=== PATIENT | male | born 1985 | race Caucasian/White ===

== ENCOUNTER 2019-07-07 13:57 | Emergency (ER) | payer SELFPAY ==
[2019-07-07 14:06] VITALS: BP 132/88; PULSE 75; RESP 16; TEMP 36.6; O2SAT 98; BMI 25.1
--- NOTE | 2019-07-07 14:11 | XRR_ITS ---
PROCEDURE INFORMATION: Exam: XR Chest, 1 View Exam date and time: 07/07/2019 2:37 PM Age: 33 years old Clinical indication: Right-sided chest pain; Additional info: Inspirational cchest pain right TECHNIQUE: Imaging protocol: XR of the chest Views: 1 view. COMPARISON: No relevant prior studies available. FINDINGS: Lungs: Unremarkable. No consolidation. Pleural space: Unremarkable. No pleural effusion. No pneumothorax. Heart/Mediastinum: Unremarkable. No cardiomegaly. Bones/joints: Unremarkable. XR/XR chest 1V portable [id number] IMPRESSION: No acute findings.
--- NOTE | 2019-07-07 14:20 | W.ED.GENADLT ---
HPI - General Adult General: Chief complaint: General Medical Stated complaint: spider bite/chest hurts when he breathes Time Seen by Provider: 07/07/19 14:11 History of Present Illness: HPI narrative: Patient complains spider bite right hip that is draining some is painful and about a day after spider bite which was 2 days ago he started having some pain with cough and inspiration nonproductive cough no fever chills MD complaint: Spider bite Onset (ago): day(s) (2) Location: lower extremity Radiation: non-radiation Severity: mild Severity scale (1-10): 4 Quality: aching Pain Consistency: intermittent Associated symptoms: Reports cough; Deny chest pain, dyspnea, fevers/chills, headache(s), malaise, nausea, rash or vomiting Review of Systems Const: Denies: malaise Eyes: Denies: change in vision or blurry vision ENMT: Denies: throat pain or nasal congestion Card: Denies: chest pain or dyspnea on exertion Resp: Reports: non-productive cough and other (Pleuritic pain right side); Denies: dyspnea or productive cough GI: Denies: abdominal pain, nausea or vomiting : Denies: difficulty urinating Musc: Denies: extremity pain Skin/Breast: Reports: erythema, skin swelling and sores (Right hip x2 days were spider bit him said it was a brown recluse); Denies: rash Neuro: Denies: headache(s) Psych: Denies: anxiety or depression Sathish/Lymph: Denies: easy bruising PFSH ED PFSH: Social History Smoking and tobacco status: current every day smoker Physical Exam Const: COMMON NORMALS: no acute distress, average body habitus and patient oriented x3 HENMT: COMMON NORMALS: normocephalic HEAD & SCALP: normal to inspection and normocephalic FACE & SINUS: normal facial exam Eye: COMMON NORMALS: conjunctivae normal GENERAL EYE: appearance normal, both eyes and all related structures CONJUNCTIVA: Yes conjunctivae normal Neck/C-Spine: COMMON NORMALS: no JVD Chest: COMMONS NORMALS: normal inspection of the chest Resp: COMMON NORMALS: normal respiratory effort and clear to auscultation bilaterally AUSCULTATION: clear to auscultation bilaterally Cardio: COMMON NORMALS: no JVD, regular rate and regular rhythm RATE: regular rate RHYTHM: regular rhythm GI: COMMON NORMALS: Normal to inspection, nondistended, normoactive bowel sounds present Extremity: COMMON NORMALS: normal to inspection and full ROM Neuro: COMMON NORMALS: patient oriented x3 Skin: NARRATIVE SKIN EXAM: Nickel size area on the right outer hip that shows some drainage with surrounding erythema going out past half dollar size tender to the touch not abscessed Course Vital Signs: Vital signs: Vital Signs Temperature 97.9 F 07/07/19 14:06 Pulse Rate 75 07/07/19 14:06 Respiratory Rate 16 07/07/19 14:06 Blood Pressure 132/88 07/07/19 14:06 Pulse Oximetry 98 07/07/19 14:06 Discharge Plan Discharge Condition: Good Coding Level of Care Code ED Nitroglycerin 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
[2019-07-07] MEDS: ketorolac 60 mg/2 mL INJ IM (14:33)
[2019-07-07 14:34] VITALS: BP 137/82; PULSE 80; RESP 16; O2SAT 97
== END 2019-07-07 14:57 | disposition home or self-care (01) ==
PROVIDERS: Emergency Provider Nurse Practitioner Family
DX: T63.301A Toxic effect of unspecified spider venom, accidental (unintentional), initial encounter (principal); F17.210 Nicotine dependence, cigarettes, uncomplicated
CPT/HCPCS: 12345; 71045; 99281; 99283; J1885

== ENCOUNTER 2020-10-11 13:38 | Emergency (ER) | payer SELFPAY ==
[2020-10-11 13:40] VITALS: PULSE 75; RESP 19; TEMP 36.7; O2SAT 92; BMI 22.9
--- NOTE | 2020-10-11 14:20 | ED_ITS ---
HPI - Nausea/Vomiting/Diarrhea General: Chief complaint: Nausea/Vomiting/Diarrhea Stated complaint: n/v, Time Seen by Provider: 10/11/20 14:09 Source: patient Mode of arrival: ambulatory Limitations: no limitations History of Present Illness: HPI Narrative: Patient is a 34-year-old male who presents to ED today with a complaint of diffuse abdominal pain and nausea/vomiting. Patient states symptoms initially began on Monday. He states on Monday he had 12 episodes of non-bloody emesis. Symptoms have continued into today. He reports subjective fevers and chills. Patient denies sick contacts or poor food exposures. He is having normal bowel movements. He states urine has been incredibly dark. He does not complain of dysuria, frequency, urgency or flank pain. Patient states he has a history of hepatitis C. Significant other states he has been sleeping more than usual. MD elicited complaint: nausea, vomiting and abdominal pain Associated nausea: Yes Associated abdominal pain: Yes Location of pain: Diffuse Radiation: diffuse Pain consistency: constant Exacerbating factors: none Relieving factors: none Associated symtoms: Reports fatigue and nausea; Denies change in vision, chest pain, dysuria, headache(s), palpitations or syncope Review of Systems Const: Reports: fever(s), chills, change in appetite and fatigue; Denies: body aches Eyes: Denies: change in vision or blurry vision ENMT: Denies: throat pain, odynophagia, nasal discharge or nasal congestion Card: Denies: chest pain, palpitations, irregular heart rhythm, lightheadedness, syncope or dyspnea on exertion Resp: Denies: dyspnea, productive cough or pain on inspiration GI: Reports: abdominal pain, nausea and vomiting; Denies: hematemesis, coffee ground emesis, diarrhea, constipation, change in stool character, hematochezia or melena : Reports: other (dark urine); Denies: flank pain, difficulty urinating, dysuria, urinary frequency, urinary urgency, urinary hesitancy, genital pain or testicular pain Musc: Denies: neck pain, back pain or joint pain Skin/Breast: Denies: rash Neuro: Denies: headache(s), numbness in extremities, weakness in extremities or sensory changes PFSH ED PFSH: Social History Smoking and tobacco status: current every day smoker Physical Exam Const: COMMON NORMALS: no acute distress, average body habitus, patient oriented x3, no limitations, healthy appearing, alert and well nourished GENERAL APPEARANCE: cooperative ORIENTATION/CONSCIOUSNESS: Yes awake, Yes oriented to person, Yes oriented to place and Yes oriented to time HENMT: COMMON NORMALS: normocephalic and atraumatic HEAD & SCALP: normocephalic and atraumatic Resp: COMMON NORMALS: normal respiratory effort and clear to auscultation bilaterally AUSCULTATION: clear to auscultation bilaterally Cardio: COMMON NORMALS: regular rate and regular rhythm RATE: regular rate RHYTHM: regular rhythm GI: COMMON NORMALS: Normal to inspection, nondistended, normoactive bowel sounds present, Soft to palpation, No hepatosplenomegaly present and no masses PALPATION: Yes Soft to palpation, Yes Tenderness to palpation present (GI) (diffusely), Yes Guarding due to palpation present (GI) and Yes No hepatosple nomegaly present : COMMON NORMALS: Yes no CVA tenderness BLADDER/KIDNEY EXAM: Yes no CVA tenderness Back/Pelvis: COMMON NORMALS: no CVA tenderness Extremity: COMMON NORMALS: no pedal edema Neuro: COMMON NORMALS: patient oriented x3 SENSORIUM/ORIENTATION: Yes alert, Yes oriented to person, Yes oriented to place and Yes oriented to time Skin: COMMON NORMALS: no rashes or lesions noted GENERAL SKIN EXAM: no rashes or lesions noted TRAUMA: no lacerations or abrasions Course Vital Signs: Vital signs: Vital Signs Temperature 98.1 F 10/11/20 13:40 Pulse Rate 62 10/11/20 17:38 Respiratory Rate 18 10/11/20 17:38 Blood Pressure 110/61 10/11/20 17:38 Pulse Oximetry 95 10/11/20 17:00 MDM - Nausea/Vomiting/Diarrhea Lab Data: Attestation: I reviewed the patient's lab results. Labs: Lab Results 10/11/20 10/11/20 10/11/20 Range/Units 14:32 14:32 15:12 WBC 9.2 (4.0-10.0) 10^3/ uL RBC 4.75 (4.1-5.3) 10^6/u L Hgb 13.9 (11.7-16.6) g/dL Hct 43.1 (42.0-52.0) % MCV 90.7 (80-94) fl MCH 29.3 (28.0-34.0) pg MCHC 32.3 (30.0-36.0) g/dL RDW 12.5 (12.1-15.1) % Plt Count 273 (130-400) 10^3/c mm MPV 9.8 (7.4-10.4) fL Neut % (Auto) 67.5 % Lymph % (Auto) 24.1 % Powell % (Auto) 5.3 % Eos % (Auto) 2.1 % Baso % (Auto) 0.7 % Neut # (Auto) 6.24 (1.8-7.7) 10^3/u L Lymph # (Auto) 2.2 (0.8-4.8) 10^3/u L Powell # (Auto) 0.5 (0.2-0.9) 10^3/u L Eos # (Auto) 0.2 (0.0-0.8) 10^3/u L Baso # (Auto) 0.1 (0.0-0.1) 10^3/u L Nucleated RBC % (a uto) 0 % Nucleated RBCs # 0.0 /100WBC Sodium 139 (136-145) mmol/L Potassium 3.9 (3.5-5.1) mmol/L Chloride 101 (98-107) mmol/L Carbon Dioxide 29 (22-29) mmol/L Anion Gap 12.9 (5-19) BUN 9 (6-20) mg/dL Creatinine 0.6 L (0.7-1.2) mg/dL GFR Calculation 156.1 H (90-130) mL/min Glucose 89 (65-115) mg/dL Calculated Osmolal ity 286 (285-295) mOsm/k g Calcium 9.2 (8.5-10.5) mg/dL Total Bilirubin 0.4 (0.15-1.2) mg/dL AST 18 (0-40) U/L ALT 41 (0-41) U/L Alkaline Phosphata se 57 (40-130) IU/L Creatine Kinase 117 (39-308) U/L Total Protein 6.7 (6.6-8.7) g/dL Albumin 4.2 (3.5-5.2) g/dL Globulin 2.5 (1.3-4.6) g/dL Lipase 15 (13-60) U/L Urine Color (Yellow) Urine Appearance (CLEAR) Urine pH (5-7) Ur Specific Gravit y (1.005-1.030) Urine Protein (Negative) Urine Glucose (UA) (Normal) Urine Ketones (Negative) Urine Blood (Negative) Urine Nitrate (Negative) Urine Bilirubin (Negative) Prot Sulfosalicyli c Acd (Negative) Urine Urobilinogen (Negative) mg/dL Ur Leukocyte Ginger ase (Negative) SARS-CoV-2 Ag (Rap id) Negative (Negative) 10/11/20 Range/Units 16:00 WBC (4.0-10.0) 10^3/ uL RBC (4.1-5.3) 10^6/u L Hgb (11.7-16.6) g/dL Hct (42.0-52.0) % MCV (80-94) fl MCH (28.0-34.0) pg MCHC (30.0-36.0) g/dL RDW (12.1-15.1) % Plt Count (130-400) 10^3/c mm MPV (7.4-10.4) fL Neut % (Auto) % Lymph % (Auto) % Powell % (Auto) % Eos % (Auto) % Baso % (Auto) % Neut # (Auto) (1.8-7.7) 10^3/u L Lymph # (Auto) (0.8-4.8) 10^3/u L Powell # (Auto) (0.2-0.9) 10^3/u L Eos # (Auto) (0.0-0.8) 10^3/u L Baso # (Auto) (0.0-0.1) 10^3/u L Nucleated RBC % (a uto) % Nucleated RBCs # /100WBC Sodium (136-145) mmol/L Potassium (3.5-5.1) mmol/L Chloride (98-107) mmol/L Carbon Dioxide (22-29) mmol/L Anion Gap (5-19) BUN (6-20) mg/dL Creatinine (0.7-1.2) mg/dL GFR Calculation (90-130) mL/min Glucose (65-115) mg/dL Calculated Osmolal ity (285-295) mOsm/k g Calcium (8.5-10.5) mg/dL Total Bilirubin (0.15-1.2) mg/dL AST (0-40) U/L ALT (0-41) U/L Alkaline Phosphata se (40-130) IU/L Creatine Kinase (39-308) U/L Total Protein (6.6-8.7) g/dL Albumin (3.5-5.2) g/dL Globulin (1.3-4.6) g/dL Lipase (13-60) U/L Urine Color Yellow (Yellow) Urine Appearance Clear (CLEAR) Urine pH 9 H (5-7) Ur Specific Gravit y 1.010 (1.005-1.030) Urine Protein Neg (Negative) Urine Glucose (UA) Norm (Normal) Urine Ketones Negative (Negative) Urine Blood Neg (Negative) Urine Nitrate Negative (Negative) Urine Bilirubin Neg (Negative) Prot Sulfosalicyli c Acd Negative (Negative) Urine Urobilinogen Norm (Negative) mg/dL Ur Leukocyte Ginger ase Negative (Negative) SARS-CoV-2 Ag (Rap id) (Negative) Imaging Data^: CT Abd/Pel: Radiologist's impression: [address] [id number] Scan ReportSigned Patient: Greyson Torres #: [id number]: 1985Acct#:[id number]/Sex: 34 / MADM Date: 10/11/20Loc: [facility]/Bed:Attending Dr: Ordering Provider/Ordering MD: Nellie Murphy Date of Service: 10/11/20 Procedure(s): CT abdomen pelvis w con* [id number] Accession Number(s): [id number] Report Number: [id number] PROCEDURE INFORMATION: Exam: CT Abdomen And Pelvis With Contrast Exam date and time: 10/11/2020 2:46 PM Age: 34 years old Clinical indication: Nausea and vomiting; Patient HX: C/O abd pain w n/v since Monday; Additional info: Abdominal pain, n/v TECHNIQUE: Imaging protocol: Computed tomography of the abdomen and pelvis with contrast. Radiation optimization: All CT scans at this facility use at least one of these dose optimization techniques: automated exposure control; mA and/or kV adjustment per patient size (includes targeted exams where dose is matched to clinical indication); or iterative reconstruction. Contrast material: OMNI 300; Contrast volume: 95 ml; Contrast route: INTRAVENOUS (IV); COMPARISON: CR Abdomen Series Acute [id number] 03/07/2016 3:12 AM RADIATION DOSE METRICS: Total DLP (mGy-cm): 1068.26 FINDINGS: Liver: Normal. No mass. Gallbladder and bile ducts: Normal. No calcified stones. No ductal dilation. Pancreas: Normal. No ductal dilation. Spleen: Normal. No splenomegaly. Adrenal glands: Normal. No mass. Kidneys and ureters: Normal. No hydronephrosis. Stomach and bowel: Unremarkable. No obstruction. No mucosal thickening. Appendix: No evidence of appendicitis. Intraperitoneal space: Unremarkable. No free air. No significant fluid collection. Vasculature: Unremarkable. No abdominal aortic aneurysm. Lymph nodes: Unremarkable. No enlarged lymph nodes. Urinary bladder: Unremarkable as visualized. Reproductive: Unremarkable as visualized. Bones/joints: Unremarkable. No acute fracture. Soft tissues: Unremarkable. CT/CT abdomen pelvis w con* [id number] IMPRESSION: No acute findings. Radiation Dose CTDIVOL = (mGy): DLP = 1068.26 (mGy-cm) Dictated By:Luigi Lane DOSigned By:Luigi Lane DOSigned Date/Time:10/11/20 1522DD/ 1521 Discharge Plan Discharge Patient Disposition: Home Clinical Impression: Gastroenteritis Condition: Stable Prescriptions: New Zofran 4 mg tablet 4 mg PO Q6H PRN (Reason: nausea and vomiting) Qty: 14 RF: 0 No Action Tylenol Extra Strength 500 mg Tablet 1,500 - 2,000 mg PO PRN RF: 0 tramadol 50 mg tablet 50 mg PO Q8H PRN (Reason: pain) Qty: 7 RF: 0 Medrol (All) 4 mg tablets,dose pack See Rx Instructions .ROUTE .COMPLEX Qty: 21 RF: 0 Discharge Orders: Discharge ED (Routine); Ordered 10/11/20 Ordered By: Nellie Murphy Patient Instructions: Gastroenteritis (ED) Stand Alone Forms: Work/School Release Coding Level of Care Code ED Cupola Repairer for Chg Fwd Exam Comprehensive
[2020-10-11] MEDS: sodium chloride 0.9% 1,000 ML 999 ML IV (14:42)
[2020-10-11] MEDS: ondansetron 2 mg/ML SDV 2 mL 4 MG IVP (14:42)
--- NOTE | 2020-10-11 14:46 | CTR_ITS ---
PROCEDURE INFORMATION: Exam: CT Abdomen And Pelvis With Contrast Exam date and time: 10/11/2020 2:46 PM Age: 34 years old Clinical indication: Nausea and vomiting; Patient HX: C/O abd pain w n/v since Monday; Additional info: Abdominal pain, n/v TECHNIQUE: Imaging protocol: Computed tomography of the abdomen and pelvis with contrast. Radiation optimization: All CT scans at this facility use at least one of these dose optimization techniques: automated exposure control; mA and/or kV adjustment per patient size (includes targeted exams where dose is matched to clinical indication); or iterative reconstruction. Contrast material: OMNI 300; Contrast volume: 95 ml; Contrast route: INTRAVENOUS (IV); COMPARISON: CR Abdomen Series Acute [id number] 03/07/2016 3:12 AM RADIATION DOSE METRICS: Total DLP (mGy-cm): 1068.26 FINDINGS: Liver: Normal. No mass. Gallbladder and bile ducts: Normal. No calcified stones. No ductal dilation. Pancreas: Normal. No ductal dilation. Spleen: Normal. No splenomegaly. Adrenal glands: Normal. No mass. Kidneys and ureters: Normal. No hydronephrosis. Stomach and bowel: Unremarkable. No obstruction. No mucosal thickening. Appendix: No evidence of appendicitis. Intraperitoneal space: Unremarkable. No free air. No significant fluid collection. Vasculature: Unremarkable. No abdominal aortic aneurysm. Lymph nodes: Unremarkable. No enlarged lymph nodes. Urinary bladder: Unremarkable as visualized. Reproductive: Unremarkable as visualized. Bones/joints: Unremarkable. No acute fracture. Soft tissues: Unremarkable. CT/CT abdomen pelvis w con* [id number] IMPRESSION: No acute findings. Radiation Dose CTDIVOL = (mGy): DLP = 1068.26 (mGy-cm)
[2020-10-11 14:54] LABS: Basophils # 0.1 10^3/uL (0.0-0.1); Basophils % 0.7 %; Eosinophils # 0.2 10^3/uL (0.0-0.8); Eosinophils % 2.1 %; Hematocrit 43.1 % (42.0-52.0); Hemoglobin 13.9 g/dL (11.7-16.6); Lymphocytes # 2.2 10^3/uL (0.8-4.8); Lymphocytes % 24.1 %; Mean Corpuscular HGB Conc 32.3 g/dL (30.0-36.0); Mean Corpuscular Hemoglobin 29.3 pg (28.0-34.0); Mean Corpuscular Volume 90.7 fl (80-94); Mean Platelet Volume 9.8 fL (7.4-10.4); Monocytes # 0.5 10^3/uL (0.2-0.9); Monocytes % 5.3 %; Neutrophils # 6.24 10^3/uL (1.8-7.7); Neutrophils % 67.5 %; Nucleated Red Blood Cells % 0 %; Platelet Count 273 10^3/cmm (130-400); Red Blood Count 4.75 10^6/uL (4.1-5.3); Red Cell Distribution Width 12.5 % (12.1-15.1); White Blood Count 9.2 10^3/uL (4.0-10.0)
[2020-10-11] MEDS: iohexol 300 mg/mL 100 mL Btl IV (14:59)
[2020-10-11 15:14] VITALS: RESP 20
[2020-10-11 15:14] LABS: Alanine Aminotransferase 41 U/L (0-41); Albumin Level 4.2 g/dL (3.5-5.2); Alkaline Phosphatase 57 IU/L (40-130); Anion Gap 12.9 (5-19); Aspartate Amino Transferase 18 U/L (0-40); Blood Urea Nitrogen 9 mg/dL (6-20); Calcium 9.2 mg/dL (8.5-10.5); Carbon Dioxide 29 mmol/L (22-29); Chloride 101 mmol/L (98-107); Creatine Phosphokinase 117 U/L (39-308); Globulin 2.5 g/dL (1.3-4.6); Glomerular Filtration Rate 156.1 mL/min (90-130); Glucose 89 mg/dL (65-115); Lipase 15 U/L (13-60); Osmolality Calculated 286 mOsm/kg (285-295); Potassium 3.9 mmol/L (3.5-5.1); Sodium 139 mmol/L (136-145); Total Bilirubin 0.4 mg/dL (0.15-1.2); Total Protein 6.7 g/dL (6.6-8.7)
[2020-10-11] MEDS: morphine 4 mg/mL SDV 1 mL IVP (15:14)
[2020-10-11 15:20] VITALS: BP 132/82; PULSE 73; RESP 18; O2SAT 99
[2020-10-11 15:50] LABS: SARS Covid-2 Antigen Negative (Negative)
[2020-10-11 16:00] VITALS: BP 124/72; PULSE 69; RESP 18; O2SAT 98
[2020-10-11 17:00] VITALS: BP 115/62; PULSE 67; RESP 18; O2SAT 95
[2020-10-11 17:10] LABS: Add Urine Microscopic? NO; Charge for UA Resulting for Rev
[2020-10-11 17:24] LABS: Urine Appearance Clear (CLEAR); Urine Color Yellow (Yellow); pH Urine 9 (5-7)
[2020-10-11 17:25] LABS: Bilirubin Urine Neg (Negative); Blood Urine Neg (Negative); Glucose Urine UA Norm (Normal); Ketones Urine Negative (Negative); Leukocyte Esterase Urine Negative (Negative); Nitrate Urine Negative (Negative); Protein Urine Neg (Negative); Sulfosalicylic Acid Urine Negative (Negative); Urobilinogen Urine Norm (Negative)
[2020-10-11 17:38] VITALS: BP 110/61; PULSE 62; RESP 18
--- NOTE | 2020-10-12 12:41 | DCPLANNER ---
aerospace project manager had message to schedule a follow up appointment for patient with Dr. Fu. aerospace project manager called the office of Dr. Fu, spoke with Marcelle, gave clinic patients information. A follow up appointment was scheduled for , October 29, 2020 at 2:[address] Fu. Clinic will call patient with appointment information.
--- NOTE | 2020-11-13 08:22 | DCPLANNER ---
Patient had a follow up appointment scheduled for 10.29.[address] Fu - patient did attend appointment.
== END 2020-10-11 17:39 | disposition home or self-care (01) ==
PROVIDERS: Emergency Provider Physician Assistant
DX: K52.9 Noninfective gastroenteritis and colitis, unspecified (principal); F17.200 Nicotine dependence, unspecified, uncomplicated
CPT/HCPCS: 74177; 80053; 81003; 82550; 83690; 85025; 87426; 96361; 96374; 96375; 99284; J2270; J2405; J7030; Q9967

== ENCOUNTER → 2020-11-04 15:44 | Outpatient (BNVA) | payer SELFPAY | PROVIDERS: Visit Provider Internal Medicine | DX: R76.8 Other specified abnormal immunological findings in serum (principal); B19.20 Unspecified viral hepatitis C without hepatic coma; B18.2 Chronic viral hepatitis C; Z79.899 Other long term (current) drug therapy | CPT/HCPCS: 86705; 86706; 86709; 86803; 87340; 87522; 87902 ==

== ENCOUNTER 2021-05-12 16:19 | Emergency (ER) | payer MEDICAID, SELFPAY ==
[2021-05-12 16:23] VITALS: BP 137/61; PULSE 81; RESP 20; TEMP 36.6; O2SAT 97; BMI 25.0
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
[2021-05-12 16:34] VITALS: BP 161/89; PULSE 71; RESP 20; TEMP 36.7; O2SAT 96
[2021-05-12 16:35] VITALS: O2SAT 96
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
[2021-05-12 18:07] VITALS: RESP 18; O2SAT 97
[2021-05-12] MEDS: morphine 4 mg/mL SDV 1 mL IVP (18:07)
[2021-05-12] MEDS: iohexol 300 mg/mL 100 mL Btl IV (18:21)
[2021-05-12 19:24] LABS: Glucose Point of Care 128 mg/dL (70-110)
[2021-05-12] MEDS: levETIRAcetam 500 mg Tablet 1000 MG PO (19:46)
[2021-05-12 19:51] VITALS: BP 115/70; PULSE 80; RESP 20
--- NOTE | 2021-05-13 10:38 | DCPLANNER ---
Addendum entered by Pennie Rodrigez 06/10/21 13:46: Patient had a follow up appointment scheduled for 06.07.[address] Powell office - patient did attend appointment. Addendum entered by Pennie Rodrigez 05/18/21 15:41: Patient has a follow up appointment scheduled for Monday, June 07, 2021 at 11:00 with Niles Christianson. Clinic will notify patient with appointment information. Original Note: manager recovery had message to schedule a follow up appointment for patient with neurology. manager recovery emailed patients information to the neurology clinic email. Patients information will be printed and reviewed. Clinic will call patient with appointment information.
== END 2021-05-12 19:52 | disposition home or self-care (01) ==
PROVIDERS: Emergency Provider Emergency Medicine
DX: Z04.1 Encounter for examination and observation following transport accident (principal); R56.9 Unspecified convulsions; F17.210 Nicotine dependence, cigarettes, uncomplicated; V89.2XXA Person injured in unspecified motor-vehicle accident, traffic, initial encounter
CPT/HCPCS: 36416; 70450; 71260; 72125; 74177; 82962; 96374; 99283; J2270; Q9967

== ENCOUNTER 2021-07-28 02:38 | Emergency (ER) | payer MEDICAID, SELFPAY ==
[2021-07-28] VITALS (12 sets, daily range): BP systolic 125–147; BP diastolic 75–99; PULSE 72–97; RESP 14–21; TEMP 36.4; O2SAT 95–100; BMI 29.1
--- NOTE | 2021-07-28 02:47 | W.ED.OVERDOS ---
HPI - Overdose General: Chief Complaint: Overdose Stated Complaint: OD Time Seen by Provider: 07/28/21 02:47 Limitations: altered mental status History of Present Illness: Mr. Torres is a 35-year-old male with significant past medical history of, per chart review, hepatitis C, seizure disorder, and apparent psychiatric disorder who presents to the emergency department due to suspected intentional overdose. History is unclear as the patient currently has altered mental status. Per EMS report patient was found down surrounded by vomit and a number of pill bottles. Pill bottles contained up to 90 tablets of quetiapine 500 mg, 30 tablets trazodone 50 mg, and 60 tablets docusate 500 mg. History is otherwise limited by absence of family or other bystanders to supply supplemental information. Review of Systems General: Reports: ROS unobtainable due to mental status [facility] ED PFSH: Medical History Seizure Surgical History No significant past surgical history Social History Smoking and tobacco status: never smoked Adopted: No Marital status: Single Number of children: 4 service: No History of recent travel: No Physical Exam Const: EXAM LIMITATIONS: altered mental status GENERAL APPEARANCE: well developed and lethargic ORIENTATION/CONSCIOUSNESS: Yes lethargic HENMT: COMMON NORMALS: normocephalic and atraumatic HEAD & SCALP: normocephalic and atraumatic OTHER: Poor dentition. Severely dry mucous membranes. Dried crusting oral secretions in the oropharynx. Eye: COMMON NORMALS: Equal, round and reactive pupils present and conjunctivae normal CONJUNCTIVA: Yes conjunctivae normal SCLERA: sclerae normal PUPIL: Yes Equal, round and reactive pupils present Neck/C-Spine: COMMON NORMALS: supple GENERAL: Yes trachea midline Resp: COMMON NORMALS: normal respiratory effort OTHER: Transmitted upper airway noises Cardio: COMMON NORMALS: regular rate and regular rhythm RATE: regular rate RHYTHM: regular rhythm GI: COMMON NORMALS: Soft to palpation PALPATION: Yes Soft to palpation and No Tenderness to palpation present (GI) Extremity: GENERAL: Yes normal exam except as noted and No edema Neuro: COMMON NORMALS: moves all extremities SENSORIUM/ORIENTATION: Yes Orientation impaired and Yes lethargic Procedures Intubation Time out performed: Yes sedative: Etomidate Mg Given: 30 paralytic: Vecuronium Mg Given: 10 Laryngoscope: fiber optic video scope ET Tube Size: 8 ET Tube Uncuffed: No Tube Secured Depth (cm): 25 Tube Secured Location: lips Tube Placement Confirmation: visualized tube passing through cords, equal breath sounds bilaterally, no breath sounds over epigastrium and confirmation by capnometry (color change device) Patient Tolerated Procedure: well Intubation Complications: none Course ED course: - Patient was seen and evaluated by me at bedside - Patient placed on cardiac monitors, IV access obtained - Initial evaluation notable for altered mental status with significant lethargy. Patient will respond to deep sternal rub and at times attempts to verbalize responses. - Labs and xrays personally interpreted by me. - Labs notable for no leukocytosis, normal hemoglobin. Metabolic panel with mild dehydration with sodium 135 and potassium 3.1. Potassium replenishment ordered. No transaminitis. Urinalysis not concerning for urinary tract infection. Toxic ingestions negative as tested with exception of positive urine drug screen for benzodiazepines. - Imaging notable for negative chest x-ray, negative head CT. - Upon serial reexamination after treatment the patient was unfortunately worse with regards to mental status. Respiratory effort became less driven and patient subsequently required supplemental oxygen which time I made the decision to intubate the patient. - Patient intubated as noted in procedure note, he tolerated the procedure well without acute complication - Nursing staff attempted multiple times to pass NG tube however were unsuccessful, there were pill fragments and thick slurry suctioned from the esophagus. - Serial EKGs obtained and reviewed with minimal widening of QRS complexes though this is not a typical side effect of Seroquel or trazodone. Case was discussed with poison control. Given prolonged QRS duration, though likely similar at least between the second and third EKG though electronically interpreted as longer magnesium ordered. Patient will require continued serial EKGs. - Based on patient history, evaluation, and testing as interpreted the most likely cause of the patient's condition is altered mental status with respiratory failure secondary to toxic ingestion of undetermined intent, suspected intentional - We do not have ICU bed availability at our facility and therefore must transfer the patient for appropriate level of care and ICU bed. Discussed case with Dr. Mirza of critical care medicine at [facility] in [place] who accepted the patient as transfer, appreciate assistance. - Patient to be transferred for definitive medical stabilization at appropriate level of care and will subsequently require psychiatry service assessment with possible discharge to inpatient psychiatric facility. Note: Click bubbles or prepopulated green in note writing are used for assistance with data collection and billing and are inherently more limited than narrative and other text portions of this note. Please use narrative for additional clinical history and defer to narrative/free test for any case of contradictory information. If information appears in only free text or click bubble it should be considered present or absent as reported. Please contact note ticket writer for clarifications of clinical information or contradictory information. MDM is a brief summary, contradictory or erroneous seeming information should be clarified and full note should be reviewed. Vital Signs: Vital signs: Vital Signs Temperature 97.6 F 07/28/21 02:44 Pulse Rate 72 07/28/21 06:42 Respiratory Rate 19 H 07/28/21 06:42 Blood Pressure 137/93 07/28/21 06:42 Pulse Oximetry 100 07/28/21 06:42 MDM - Overdose Medical Decision Making 35-year-old male with, per chart review, history of seizures and hepatitis C presenting to the emergency department with suspected intentional drug overdose with Seroquel, trazodone, docusate. Initially borderline with regards to mental status however subsequently patient worsened including respiratory status subsequently requiring oxygen and therefore was intubated. Patient transferred to [facility] for definitive management. Medical Records I reviewed the patient's medical records. Lab Data I reviewed the patient's lab results. : 07/28/21 02:55 07/28/21 02:[address] 07/28/21 03:17 IMPRESSION: 1. No acute intracranial hemorrhage or mass effect. 2. No definite acute infarct by CT, see above. 3. Other findings discussed above. Chest X-Ray 07/28/21 04:30 IMPRESSION: 1. ET tube placement as above. 2. No other significant interval change. 3. Other details discussed above. Laboratory Results WBC 7.6 10^3/uL (4.0-10.0) 07/28/21 02:55 RBC 4.96 10^6/uL (4.1-5.3) 07/28/21 02:55 Hgb 14.3 g/dL (11.7-16.6) 07/28/21 02:55 Hct 41.5 % (42.0-52.0) L 07/28/21 02:55 MCV 83.7 fl (80-94) 07/28/21 02:55 MCH 28.8 pg (28.0-34.0) 07/28/21 02:55 MCHC 34.5 g/dL (30.0-36.0) 07/28/21 02:55 RDW 12.6 % (12.1-15.1) 07/28/21 02:55 Plt Count 240 10^3/cmm (130-400) 07/28/21 02:55 MPV 10.0 fL (7.4-10.4) 07/28/21 02:55 Neut % (Auto) 62.1 % 07/28/21 02:55 Lymph % (Auto) 26.3 % 07/28/21 02:55 George % (Auto) 8.5 % 07/28/21 02:55 Eos % (Auto) 2.1 % 07/28/21 02:55 Baso % (Auto) 0.7 % 07/28/21 02:55 Neut # (Auto) 4.71 10^3/uL (1.8-7.7) 07/28/21 02:55 Lymph # (Auto) 2.0 10^3/uL (0.8-4.8) 07/28/21 02:55 George # (Auto) 0.6 10^3/uL (0.2-0.9) 07/28/21 02:55 Eos # (Auto) 0.2 10^3/uL (0.0-0.8) 07/28/21 02:55 Baso # (Auto) 0.1 10^3/uL (0.0-0.1) 07/28/21 02:55 Nucleated RBC % (auto) 0 % 07/28/21 02:55 Nucleated RBCs # 0.0 /100WBC 07/28/21 02:55 Specimen Type Arterial 07/28/21 05:01 Sample Site Brachial, left 07/28/21 05:01 ABG pH 7.29 (7.35-7.45) L 07/28/21 05:01 ABG pCO2 51.6 mmHg (35-45) H 07/28/21 05:01 ABG pO2 232.0 mmHg (80.0-100.0) H 07/28/21 05:01 ABG HCO3 24.8 mmol/L (22-26) 07/28/21 05:01 ABG Base Excess -2.5 mmol/L (-2.0-2.0) L 07/28/21 05:01 Fernando Test Pos 07/28/21 05:01 Hematocrit 46.3 % (42-52) 07/28/21 05:01 O2 Delivery Device Vent 07/28/21 05:01 Mechanical Rate 14.0 07/28/21 05:01 FiO2 60.0 % 07/28/21 05:01 PEEP 5.0 cmH20 07/28/21 05:01 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 [employer] 07/28/21 05:01 Sodium 135 mmol/L (136-145) L 07/28/21 02:55 Potassium 3.1 mmol/L (3.5-5.1) L 07/28/21 02:55 Chloride 100 mmol/L (98-107) 07/28/21 02:55 Carbon Dioxide 22 mmol/L (22-29) 07/28/21 02:55 Anion Gap 16.1 (5-19) 07/28/21 02:55 BUN 19 mg/dL (6-20) 07/28/21 02:55 Creatinine 0.8 mg/dL (0.7-1.2) 07/28/21 02:55 GFR Calculation 111.3 mL/min (90-130) 07/28/21 02:55 Glucose 98 mg/dL (65-115) 07/28/21 02:55 POC Glucose 109 mg/dL (70-110) 07/28/21 02:49 Calculated Osmolality 282 mOsm/kg (285-295) L 07/28/21 02:55 Calcium 8.6 mg/dL (8.5-10.5) 07/28/21 02:55 Magnesium 2.3 mg/dL (1.7-2.3) 07/28/21 02:55 Total Bilirubin 0.6 mg/dL (0.15-1.2) 07/28/21 02:55 AST 27 U/L (0-40) 07/28/21 02:55 ALT 26 U/L (0-41) 07/28/21 02:55 Alkaline Phosphatase 73 IU/L (40-130) 07/28/21 02:55 Total Protein 7.2 g/dL (6.6-8.7) 07/28/21 02:55 Albumin 4.5 g/dL (3.5-5.2) 07/28/21 02:55 Globulin 2.7 g/dL (1.3-4.6) 07/28/21 02:55 TSH 2.56 uIU/mL (0.27-4.20) 07/28/21 02:55 Urine Color Yellow (Yellow) 07/28/21 03:16 Urine Appearance Clear (CLEAR) 07/28/21 03:16 Urine pH 5 (5-7) 07/28/21 03:16 Ur Specific [place] 1.025 (1.005-1.030) 07/28/21 03:16 Urine Protein Trace (Negative) 07/28/21 03:16 Urine Glucose (UA) Norm (Normal) 07/28/21 03:16 Urine Ketones 1+ (Negative) H 07/28/21 03:16 Urine Blood Neg (Negative) 07/28/21 03:16 Urine Nitrate Negative (Negative) 07/28/21 03:16 Urine Bilirubin 1+ (Negative) H 07/28/21 03:16 Urine Urobilinogen 4 mg/dL (Negative) H 07/28/21 03:16 Ur Leukocyte Esterase Negative (Negative) 07/28/21 03:16 Urine RBC 0-4 /hpf (0-2) H 07/28/21 03:16 Urine WBC 0-4 /hpf (0-5) H 07/28/21 03:16 Ur Squamous Epith Cells 0-4 /hpf (0-5) H 07/28/21 03:16 Amorphous Sediment Not Reportable 07/28/21 03:16 Urine Bacteria None /hpf (NONE) 07/28/21 03:16 Urine Mucus 1+ /hpf 07/28/21 03:16 Salicylates < 0.3 mg/dL (3-10) L 07/28/21 02:55 Urine Opiates Screen Negative ng/mL (Negative) 07/28/21 03:16 Acetaminophen < 5.0 ug/mL (10-30) L 07/28/21 02:55 Ur Barbiturates Screen Negative ng/mL (Negative) 07/28/21 03:16 Ur Phencyclidine Scrn Negative ng/mL (Negative) 07/28/21 03:16 Ur Amphetamines Screen Negative ng/mL (Negative) 07/28/21 03:16 U Benzodiazepines Scrn Positive ng/mL (Negative) H 07/28/21 03:16 Urine Cocaine Screen Negative ng/mL (Negative) 07/28/21 03:16 U Marijuana (THC) Screen Negative ng/mL (Negative) 07/28/21 03:16 Ethyl Alcohol < 10 mg/dL (0-10) 07/28/21 02:55 Critical Care Time Critical Care Time: Critical Care Time: Yes Total Critical Care Time: 80 Attestation: Due to a high probability of clinically significant, possibly life threatening deterioration, the patient required my highest level of attention and preparedness to intervene emergently and I personally spent this critical care time directly and personally managing the patient. This critical care time included obtaining a history; examining the patient; pulse oximetry; ordering and review of laboratory and imaging studies; arranging urgent treatment with development of a management plan; evaluation of patient's response to treatment; frequent reassessment; and, discussions with other providers as applicable. It was exclusive of separately billable procedures. 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
--- NOTE | 2021-07-28 02:48 | ECG_ITS ---
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 Measurements Intervals [place] Rate: 82 P: 74 NE: 166 QRS: -53 QRSD: 114 T: 78 QT: 303 QTc: 355 Interpretive Statements SINUS RHYTHM POSSIBLE LEFT ATRIAL ENLARGEMENT [-0.1mV P-WAVE IN V1/V2] INCOMPLETE RIGHT BUNDLE BRANCH BLOCK [90+ ms QRS DURATION, TERMINAL R IN V1/V2, 40+ ms S IN I/aVL/V4/V5/V6] LEFT ANTERIOR FASCICULAR BLOCK [QRS AXIS <= -45, QR IN I, RS IN II] NONSPECIFIC ST & T-WAVE ABNORMALITY Compared to ECG 10/02/2017 00:24:17 Left anterior fascicular block now present T-wave abnormality now present ST (T wave) deviation no longer present Early repolarization no longer present Electronically Signed On 07-28-2021 20:09:55 CDT by Mt Petit M.D. [id number]
--- NOTE | 2021-07-28 02:48 | XRR_ITS ---
PROCEDURE INFORMATION: Exam: XR Chest Exam date and time: 07/28/2021 2:58 AM Age: 35 years old Clinical indication: Patient HX: Drug overdose on seroquel and trazadone. Patient only responds to pain stimulus. ; Additional info: AMS TECHNIQUE: Imaging protocol: XR of the chest. Views: 1 view. COMPARISON: Chest x-ray 07/07/2019 2:43 PM FINDINGS: Lungs: No CHF/pulmonary edema. Visible lungs appear essentially clear. Pleural spaces: No visible pneumothorax. No definite pleural fluid. Mild probable pleural thickening in both lung apices, similar to prior exam. Heart/Mediastinum: Heart size is within normal limits. Bones/joints: No significant acute finding. XR/XR chest 1V portable [id number] IMPRESSION: 1. No definite pneumonia or CHF. 2. Other findings discussed above.
[2021-07-28 02:53] LABS: Glucose Point of Care 109 mg/dL (70-110)
--- NOTE | 2021-07-28 02:58 | PC.NURSE ---
POISON CONTROL CONTACTED FOR POSSIBLE OD. PT PRESENTED TO DEPARTMENT WITH 5 EMPTY MEDICATION BOTTLES. BOTTLES INCLUDED SEROQUEL 50 mg 30 TAB X 3, DOCUSATE SOD 100 MG 60 TAB AND TRAZODONE 50 MG 30 TAB. POISON CONTROL TO SEND OVER ADDITIONAL INFORMATION FOR TREATMENT.
[2021-07-28 03:01] LABS: Basophils # 0.1 10^3/uL (0.0-0.1); Basophils % 0.7 %; Eosinophils # 0.2 10^3/uL (0.0-0.8); Eosinophils % 2.1 %; Hematocrit 41.5 % (42.0-52.0); Hemoglobin 14.3 g/dL (11.7-16.6); Lymphocytes % 26.3 %; Mean Corpuscular HGB Conc 34.5 g/dL (30.0-36.0); Mean Corpuscular Hemoglobin 28.8 pg (28.0-34.0); Mean Corpuscular Volume 83.7 fl (80-94); Monocytes # 0.6 10^3/uL (0.2-0.9); Monocytes % 8.5 %; Neutrophils # 4.71 10^3/uL (1.8-7.7); Neutrophils % 62.1 %; Nucleated Red Blood Cells % 0 %; Platelet Count 240 10^3/cmm (130-400); Red Blood Count 4.96 10^6/uL (4.1-5.3); Red Cell Distribution Width 12.6 % (12.1-15.1); White Blood Count 7.6 10^3/uL (4.0-10.0)
[2021-07-28 03:08] LABS: Arterial Blood Gas Hematocrit 44.9 % (42-52); Base Excess ABG -0.6 mmol/L (-2.0-2.0); Blood Gas Allen Test Pos; Blood Gas Operator Identificat WALCI; Blood Gas Sample Site Brachial, left; Blood Gas Sample Type Arterial; HCO3 ABG 24.1 mmol/L (22-26); PO2 ABG 90.5 mmHg (80.0-100.0)
--- NOTE | 2021-07-28 03:17 | CTR_ITS ---
PROCEDURE INFORMATION: Exam: CT Head Without Contrast Exam date and time: 07/28/2021 3:35 AM Age: 35 years old Clinical indication: Altered mental status/memory loss; Patient HX: Drug overdose on seroquel and trazadone. Patient responsive only to pain stimulus. ; Additional info: AMS TECHNIQUE: Imaging protocol: Computed tomography of the head without contrast. Radiation optimization: All CT scans at this facility use at least one of these dose optimization techniques: automated exposure control; mA and/or kV adjustment per patient size (includes targeted exams where dose is matched to clinical indication); or iterative reconstruction. COMPARISON: CT head wo con* [id number] 05/12/2021 6:20 PM RADIATION DOSE METRICS: Total DLP (mGy-cm): 739.54 FINDINGS: Brain: No acute intracranial hemorrhage or mass effect. No definite acute infarct by CT. MRI could be more sensitive/specific for detection, as clinically directed. Cerebral ventricles: Ventricle size is normal for age. Paranasal sinuses: Mild focal areas opacity in the ethmoid sinuses. Couple of retention cysts or polyps in the left maxillary sinus, larger measures 15 mm. Minimal mucosal thickening in the sphenoid sinus. Mastoid air cells: No significant acute finding. Bones/joints: No definite acute skull fracture. Soft tissues: No significant acute finding. CT/CT head wo con* [id number] IMPRESSION: 1. No acute intracranial hemorrhage or mass effect. 2. No definite acute infarct by CT, see above. 3. Other findings discussed above.
[2021-07-28] MEDS: sodium chloride 0.9% 1,000 ML 999 ML IV (03:22)
[2021-07-28 03:27] LABS: Add Urine Microscopic? YES; Bilirubin Urine 1+ (Negative); Blood Urine Neg (Negative); Glucose Urine UA Norm (Normal); Ketones Urine 1+ (Negative); Leukocyte Esterase Urine Negative (Negative); Nitrate Urine Negative (Negative); Protein Urine Trace (Negative); Specific Gravity, Urine 1.025 (1.005-1.030); Urine Appearance Clear (CLEAR); Urine Color Yellow (Yellow); Urobilinogen Urine 4 mg/dL (Negative); pH Urine 5 (5-7)
[2021-07-28 03:29] LABS: Alanine Aminotransferase 26 U/L (0-41); Albumin Level 4.5 g/dL (3.5-5.2); Alkaline Phosphatase 73 IU/L (40-130); Anion Gap 16.1 (5-19); Aspartate Amino Transferase 27 U/L (0-40); Blood Urea Nitrogen 19 mg/dL (6-20); Calcium 8.6 mg/dL (8.5-10.5); Carbon Dioxide 22 mmol/L (22-29); Chloride 100 mmol/L (98-107); Globulin 2.7 g/dL (1.3-4.6); Glomerular Filtration Rate 111.3 mL/min (90-130); Glucose 98 mg/dL (65-115); Magnesium 2.3 mg/dL (1.7-2.3); Osmolality Calculated 282 mOsm/kg (285-295); Potassium 3.1 mmol/L (3.5-5.1); Sodium 135 mmol/L (136-145); Thyroid Stimulating Hormone 2.56 uIU/mL (0.27-4.20); Total Bilirubin 0.6 mg/dL (0.15-1.2); Total Protein 7.2 g/dL (6.6-8.7)
[2021-07-28 03:30] LABS: Acetaminophen < 5.0 ug/mL (10-30); Alcohol Level < 10 mg/dL (0-10); Salicylate < 0.3 mg/dL (3-10)
[2021-07-28 03:34] LABS: Add Urine Culture? No; Mucus Urine 1+ /hpf; RBC Urine 0-4 /hpf (0-2); Squamous Epithelial Cell Urine 0-4 /hpf (0-5); WBC Urine 0-4 /hpf (0-5)
[2021-07-28 03:36] LABS: Amphetamines Screen Urine Negative (Negative); Barbiturates Screen Urine Negative (Negative); Benzodiazepines Screen Urine Positive (Negative); Cocaine Screen Urine Negative (Negative); Opiate Screen Urine Negative (Negative); PCP Screen Urine Negative (Negative); THC Screen Urine Negative (Negative)
[2021-07-28] MEDS: vecuronium 10 mg SDV IVP (04:23)
[2021-07-28] MEDS: fentaNYL 50 mcg/mL INJ 2mL IVP (04:26)
--- NOTE | 2021-07-28 04:30 | XRR_ITS ---
PROCEDURE INFORMATION: Exam: XR Chest Exam date and time: 07/28/2021 4:32 AM Age: 35 years old Clinical indication: Device placement; Ett placement (vent status); Patient HX: Check S/P intubation TECHNIQUE: Imaging protocol: XR of the chest. Views: 1 view. COMPARISON: CR (CHEST, ) 07/28/2021 2:58 AM FINDINGS: Tubes, catheters and devices: ET tube now present, tip about 2 cm above the hilaria. Lungs: No CHF/pulmonary edema. Visible lungs appear essentially clear. Pleural spaces: No visible pneumothorax. No definite pleural fluid. Heart/Mediastinum: Heart size is within normal limits. Bones/joints: No significant acute finding. XR/XR chest 1V portable [id number] IMPRESSION: 1. ET tube placement as above. 2. No other significant interval change. 3. Other details discussed above.
[2021-07-28] MEDS: propofol 1,000 MG/100 ML INJ 5.85 MG IV (05:09)
[2021-07-28] MEDS: potassium chloride premix 100 ML 25 MEQ IV (05:09)
[2021-07-28 05:12] LABS: ABG PCO2 51.6 mmHg (35-45); ABG PH Result 7.29 (7.35-7.45); Arterial Blood Gas Hematocrit 46.3 % (42-52); Base Excess ABG -2.5 mmol/L (-2.0-2.0); Blood Gas Allen Test Pos; Blood Gas Operator Identificat WALCI; Blood Gas Sample Site Brachial, left; Blood Gas Sample Type Arterial; HCO3 ABG 24.8 mmol/L (22-26); Oxygen Device VENT
[2021-07-28] MEDS: magnesium sulfate premix 2 GM/50 ML PIGGYBACK IV (05:39)
== END 2021-07-28 06:46 | disposition short-term general hospital (02) ==
PROVIDERS: Emergency Provider Emergency Medicine
DX: T43.592A Poisoning by other antipsychotics and neuroleptics, intentional self-harm, initial encounter (principal); T43.212A Poisoning by selective serotonin and norepinephrine reuptake inhibitors, intentional self-harm, initial encounter; T47.4X2A Poisoning by other laxatives, intentional self-harm, initial encounter; J96.01 Acute respiratory failure with hypoxia; R41.82 Altered mental status, unspecified; G40.909 Epilepsy, unspecified, not intractable, without status epilepticus; B19.20 Unspecified viral hepatitis C without hepatic coma
CPT/HCPCS: 31500; 36416; 36600; 70450; 71045; 80053; 80306; 80307; 81001; 82803; 82962; 83735; 84443; 85025; 93005; 94002; 94799; 96365; 96367; 96375; 99291; J2370; J2704; J3010; J3475; J3480; J3490; J7030

== ENCOUNTER 2023-05-27 10:30 | Emergency (ER) | payer MEDICAID, SELFPAY ==
[2023-05-27 10:33] VITALS: BMI 25.0
--- NOTE | 2023-05-27 10:34 | ECG_ITS ---
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 Measurements Intervals [place] Rate: 105 P: 0 AL: 0 QRS: -39 QRSD: 93 T: 48 QT: 317 QTc: 419 Interpretive Statements SINUS TACHCYCARDIA LEFT AXIS DEVIATION [QRS AXIS < -30] POSSIBLE RIGHT VENTRICULAR CONDUCTION DELAY [RSR (QR) IN V1/V2] Compared to ECG 07/28/2021 03:57:57 Left-axis deviation now present Incomplete right bundle-branch block no longer present Left anterior fascicular block no longer present T-wave abnormality no longer present Electronically Signed On 05-28-2023 11:10:55 CDT by Asim Bolaños M.D. [id number]
--- NOTE | 2023-05-27 10:34 | XRR_ITS ---
PROCEDURE INFORMATION: Exam: XR Chest Exam date and time: 05/27/2023 10:46 AM Age: 37 years old Clinical indication: Chest wall pain; Additional info: Chest pain TECHNIQUE: Imaging protocol: Radiologic exam of the chest. Views: 1 view. COMPARISON: CR (CHEST, ) 07/28/2021 4:32 AM FINDINGS: Lungs: Unremarkable. No consolidation or mass. Pleural spaces: Unremarkable. No pleural effusion. No pneumothorax. Heart/Mediastinum: Unremarkable. No cardiomegaly. Bones/joints: Unremarkable. XR/XR chest 1V portable [id number] IMPRESSION: No acute findings.
[2023-05-27 10:35] VITALS: BP 156/101; PULSE 111; RESP 17; TEMP 36.7; O2SAT 98
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
[2023-05-27 10:50] LABS: Basophils # 0.1 10^3/uL (0.0-0.1); Basophils % 0.5 %; Eosinophils # 0.1 10^3/uL (0.0-0.8); Eosinophils % 0.9 %; Lymphocytes # 2.6 10^3/uL (0.8-4.8); Mean Corpuscular HGB Conc 34.8 g/dL (30-55); Mean Corpuscular Volume 86.3 fl (82-101); Mean Platelet Volume 9.9 fL (7.4-10.4); Monocytes # 0.9 10^3/uL (0.2-0.9); Monocytes % 5.5 %; Neutrophils # 12.63 10^3/uL (1.8-7.7); Neutrophils % 76.7 %; Nucleated Red Blood Cells % 0 %; Platelet Count 330 10^3/cmm (157-399); Red Blood Count 5.33 10^6/uL (3.85-5.65); Red Cell Distribution Width 13.1 % (12.1-15.1); White Blood Count 16.46 10^3/uL (3.29-11.43)
[2023-05-27 11:09] LABS: Troponin(5th) Baseline < 6 ng/L (0-15)
[2023-05-27 11:12] LABS: Alanine Aminotransferase 23 U/L (0-41); Albumin Level 4.3 g/dL (3.5-5.2); Alkaline Phosphatase 96 U/L (40-130); Anion Gap 18.4 (5-19); Aspartate Amino Transferase 22 U/L (0-40); Blood Urea Nitrogen 17 mg/dL (6-20); Calcium 9.3 mg/dL (8.5-10.5); Carbon Dioxide 24 mmol/L (22-29); Chloride 99 mmol/L (98-107); Globulin 3.2 g/dL (1.3-4.6); Glucose 121 mg/dL (65-115); Osmolality Calculated 289 mOsm/kg (285-295); Potassium 3.4 mmol/L (3.5-5.1); Sodium 138 mmol/L (136-145); Total Bilirubin 0.8 mg/dL (0.15-1.2); Total Protein 7.5 g/dL (6.6-8.7)
[2023-05-27 12:25] VITALS: PULSE 103; O2SAT 96
--- NOTE | 2023-05-27 12:32 | ECG_ITS ---
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 Measurements Intervals [place] Rate: 87 P: 0 WI: 0 QRS: -29 QRSD: 103 T: 52 QT: 364 QTc: 439 Interpretive Statements ATRIAL FIBRILLATION BORDERLINE LEFT AXIS DEVIATION [QRS AXIS < -20] Compared to ECG 05/27/2023 10:34:40 No significant changes Electronically Signed On 05-28-2023 11:20:06 CDT by Asim Bolaños M.D. [id number]
[2023-05-27 13:05] LABS: Troponin 5 2HR Delta 0.00001 ABS# (0-10)
[2023-05-27] MEDS: tetanus-dipt-pertussis 0.5 mL SDV IM (13:25)
[2023-05-27 13:33] VITALS: PULSE 91; O2SAT 95
== END 2023-05-27 13:35 | disposition home or self-care (01) ==
PROVIDERS: Physician Assistant; Emergency Provider Family Medicine; PCP Registered Nurse
DX: T59.811A Toxic effect of smoke, accidental (unintentional), initial encounter (principal); T22.10XA Burn of first degree of shoulder and upper limb, except wrist and hand, unspecified site, initial encounter; T20.17XA Burn of first degree of neck, initial encounter; Z87.891 Personal history of nicotine dependence; X00.8XXA Other exposure to uncontrolled fire in building or structure, initial encounter; Z23 Encounter for immunization
CPT/HCPCS: 36415; 71045; 80053; 84484; 85025; 90471; 90715; 93005; 99285

== ENCOUNTER 2024-03-07 08:55 | Emergency (ER) | payer SELFPAY ==
[2024-03-07 09:20] VITALS: BP 145/98; PULSE 92; RESP 18; TEMP 36.7; O2SAT 98; BMI 27.2
--- NOTE | 2024-03-07 09:45 | XR_ITS ---
WS: [id number] XR hand RT min 3V* [id number] REASON FOR EXAM: trauma FINDINGS: There is deformity of the distal fifth metacarpal compatible with old healed fracture. No acute fracture is identified. The joint spaces of the hand are intact and well preserved. No radiopaque foreign body. XR/XR hand RT min 3V* [id number] IMPRESSION: No acute abnormality as above.
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
[2024-03-07] MEDS: ketorolac 60 mg/2 mL INJ IM (10:28)
[2024-03-07 10:34] VITALS: BP 146/95; PULSE 78; O2SAT 96
== END 2024-03-07 10:36 | disposition home or self-care (01) ==
PROVIDERS: Emergency Provider Emergency Medicine; PCP Registered Nurse
DX: M79.641 Pain in right hand (principal); Z87.891 Personal history of nicotine dependence
CPT/HCPCS: 73130; 96372; 99284; J1885

== ENCOUNTER 2024-09-27 20:03 | Emergency (ER) | payer OTHER, SELFPAY ==
[2024-09-27 20:08] VITALS: BP 146/80; PULSE 96; RESP 18; TEMP 37; O2SAT 96; BMI 27.8
--- NOTE | 2024-09-27 20:40 | W.ED.EXTPRO ---
HPI - Extremity Problem General: Chief complaint: Extremity Injury, Lower Stated complaint: bad feet swelling Time Seen by Provider: 09/27/24 20:22 Source: patient Mode of arrival: ambulatory Limitations: no limitations History of Present Illness: Patient is a 38-year-old male who presents the emergency department complaining of bilateral lower extremity swelling intermittently for the past few months. He states he has a regular provider and has brought this up in the past but has not been treated for cellulitis. There is no specific timing of the swelling, however he states it is always bilateral. He notes it was so severe prior to coming in he could not get his shoes on. However notes that there is no swelling at this time. He does not report any pain or warmth with this, but does state that his feet get erythematous and the swelling was so severe earlier that it caused skin breakdown of his toes. No systemic symptoms are reported. No family history of blood dyscrasias or coagulopathies. 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 MD Complaint: extremity swelling Onset (ago): month(s) Pain Consistency: intermittent Location: left, right and lower extremity (feet) Associated symptoms: Deny chest pain, fever(s) or rash Related Data Home Medications ?Medication ?Instructions ?Recorded ?Confirmed hydroxyzine HCl 10 mg tablet 10 mg PO TID PRN 07/01/24 07/01/24 metformin 500 mg tablet 500 mg PO DAILY 07/01/24 07/01/24 multivitamin 1 tab PO DAILY 07/01/24 07/01/24 paroxetine HCl 10 mg tablet 10 mg PO DAILY 07/01/24 07/01/24 Previous Rx's ?Medication ?Instructions ?Recorded diclofenac sodium 50 mg 50 mg PO BID PRN pain #14 tabs 03/07/24 tablet,delayed release albuterol sulfate 90 mcg/actuation 2 puff inhalation Q6H PRN 07/01/24 aerosol inhaler (Ventolin HFA) shortness of breath or wheezing #8.5 grams amoxicillin 875 mg-potassium 1 tab PO BID 7 days #14 tabs 07/01/24 clavulanate 125 mg tablet prednisone 20 mg tablet 20 mg PO DAILY 5 days #5 tabs 07/01/24 Allergies Allergy/AdvReac Type Severity Reaction Status Date / Time No Known Allergies Allergy Verified 09/27/24 20:14 Review of Systems General: Reports: 10 or more systems reviewed and unremarkable except in HPI and below Const: Denies: fever(s), chills or fatigue Eyes: Denies: change in vision ENMT: Denies: throat pain, ear or mastoid pain or nasal discharge Card: Denies: chest pain, palpitations, swelling of feet/ankles or lightheadedness Resp: Denies: dyspnea, productive cough or wheezing GI: Denies: abdominal pain, nausea, vomiting, diarrhea or constipation : Denies: flank pain, difficulty urinating, dysuria or urinary frequency Musc: Reports: extremity swelling; Denies: neck pain, back pain or joint pain Skin/Breast: Reports: erythema and skin swelling; Denies: rash Neuro: Denies: headache(s), numbness in extremities or weakness in extremities PFSH ED PFSH: Medical History Seizure Surgical History No significant past surgical history Family History Grandfather Aortic aneurysm Father Hypertension Denies family history of Diabetes CAD (coronary artery disease) Chronic kidney disease (CKD) Lung disease Cancer Stroke Social History Smoking and tobacco/nicotine status: current every day tobacco/nicotine user Quit status (tobacco/nicotine): has quit using Year quit tobacco: 2021 Alcohol intake: never Substance/Drug Use: never Adopted: No Caregiver/support person: No Lives independently: No Household members: friend(s) Marital status: Single Number of children: 4 service: No Current occupational status: unemployed Sexually active: Yes Do you think of yourself as: Straight/Heterosexual Current gender identity: Male Physical Exam Const: COMMON NORMALS: no acute distress, patient oriented x3 and no limitations GENERAL APPEARANCE: cooperative, comfortable and well developed ORIENTATION/CONSCIOUSNESS: Yes awake, Yes oriented to person, Yes oriented to place and Yes oriented to time Neck/C-Spine: COMMON NORMALS: full ROM, supple and no JVD Resp: COMMON NORMALS: normal respiratory effort, No retractions, No use of accessory muscles and clear to auscultation bilaterally AUSCULTATION: clear to auscultation bilaterally Cardio: COMMON NORMALS: no JVD, regular rate, regular rhythm, No clicks present (Cardio), No murmurs present (Cardio) and No rub (Cardio) RATE: regular rate RHYTHM: regular rhythm GI: COMMON NORMALS: Normal to inspection, nondistended, normoactive bowel sounds present, Soft to palpation and non-tender AUSCULTATION: Yes normoactive bowel sounds PALPATION: Yes Soft to palpation RECTAL EXAM: Yes deferred Extremity: NARRATIVE EXTREMITY EXAM: Bilateral lower extremities do not show any edema at this time. There is appearance of mild skin breakdown to the left second toe, this is mild. Distal pulses are palpable. There is no skin mottling, erythema, warmth, or other signs of cellulitis. Neuro: COMMON NORMALS: patient oriented x3, moves all extremities, no focal motor deficits and no sensory deficits noted SENSORIUM/ORIENTATION: Yes oriented to person, Yes oriented to place and Yes oriented to time Skin: COMMON NORMALS: no rashes or lesions noted GENERAL SKIN EXAM: no rashes or lesions noted Course Vital Signs: Vital signs: Vital Signs Temperature 98.6 F 09/27/24 20:08 Pulse Rate 96 09/27/24 20:08 Respiratory Rate 18 09/27/24 20:08 Blood Pressure 146/80 09/27/24 20:08 Pulse Oximetry 96 09/27/24 20:08 Oxygen Delivery Me thod Room Air 09/27/24 20:08 MDM - Extremity (Nontraumatic) Medical Decision Making Patient presenting with reports of intermittent swelling to his bilateral lower extremities that is going on for months. States that it got so severe today that he had some skin breakdown and could not get his boots on. However the exam reveals no edema in his feet, no signs of cellulitis or concerns for any DVT. 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 Basic labs were checked and unremarkable, this included normal urinalysis with no significant proteinuria. Again I do not think that this is related to any occlusive thrombus or systemic process, he has been stable throughout ED stay and he is reassured that he can follow-up with primary care for further testing, if this continues to be an issue. He agrees with this plan. Lab Data 09/27/24 20:51 09/27/24 20:51 Laboratory Results WBC 11.77 10^3/uL (3.29-11.43) H 09/27/24 20: RBC 4.92 10^6/uL (3.85-5.65) 09/27/24 20:51 Hgb 13.90 g/dL (11.27-16.99) 09/27/24 20:51 Hct 42.4 % (37-53) 09/27/24 20:51 MCV 86.2 fl (82-101) 09/27/24 20:51 MCH 28.3 pg (27-33) 09/27/24 20: MCHC 32.8 g/dL (30-55) 09/27/24 20: RDW 14.7 % (12.1-15.1) 09/27/24 20: Plt Count 383 10^3/cmm (157-399) 09/27/24 20: MPV 9.9 fL (7.4-10.4) 09/27/24 20:51 Neut % (Auto) 72.5 % 09/27/24 20:51 Lymph % (Auto) 17.8 % 09/27/24 20: Pierce % (Auto) 7.6 % 09/27/24 20: Eos % (Auto) 1.4 % 09/27/24 20: Baso % (Auto) 0.3 % 09/27/24: Neut # (Auto) 8.53 10^3/uL (1.8-7.7) H 09/27/24 20:51 Lymph # (Auto) 2.1 10^3/uL (0.8-4.8) 09/27/24 20:51 Pierce # (Auto) 0.9 10^3/uL (0.2-0.9) 09/27/24 20: Eos # (Auto) 0.2 10^3/uL (0.0-0.8) 09/27/24 20:51 Baso # (Auto) 0.0 10^3/uL (0.0-0.1) 09/27/24 20:51 Nucleated RBC % (auto) 0 % 08/08/25 20:51 Nucleated RBCs # 0.0 /100WBC 09/27/24 20:51 Sodium 137 mmol/L (136-145) 09/27/24 20:51 Potassium 4.2 mmol/L (3.5-5.1) 09/27/24 20:51 Chloride 99 mmol/L (98-107) 09/27/24 20:51 Carbon Dioxide 27 mmol/L (22-29) 09/27/24 20:51 Anion Gap 15.2 (5-19) 09/27/24 20:51 BUN 10 mg/dL (6-20) 09/27/24 20:51 Creatinine 0.8 mg/dL (0.7-1.2) 09/27/24 20:51 GFR Calculation 109.4 mL/min (90-130) 09/27/24 20:51 Glucose 100 mg/dL (65-115) 09/27/24 20:51 Calculated Osmolality 283 mOsm/kg (285-295) L 09/27/24 20:51 Calcium 8.7 mg/dL (8.5-10.5) 09/27/24 20:51 Total Bilirubin 0.2 mg/dL (0.15-1.2) 09/27/24 20:51 AST 25 U/L (0-40) 09/27/24 20:51 ALT 14 U/L (0-41) 09/27/24 20:51 Alkaline Phosphatase 66 U/L (40-130) 09/27/24 20:51 Total Protein 7.6 g/dL (6.6-8.7) 09/27/24 20:51 Albumin 4.2 g/dL (3.5-5.2) 09/27/24 20:51 Globulin 3.4 g/dL (1.3-4.6) 09/27/24 20:51 Urine Color Yellow (Yellow) 09/27/24 21:31 Urine Appearance Cloudy (CLEAR) A 09/27/24 21:31 Urine pH 7.0 (5-7) 09/27/24 21:31 Ur Specific [place] 1.023 (1.005-1.030) 09/27/24 21:31 Urine Protein 2+ (Negative) A 09/27/24 21:31 Urine Glucose (UA) Negative (Normal) 09/27/24 21:31 Urine Ketones Negative (Negative) 09/27/24 21:31 Urine Blood Negative (Negative) 09/27/24 21:31 Urine Nitrate Negative (Negative) 09/27/24 21:31 Urine Bilirubin Negative (Negative) 09/27/24 21:31 Urine Urobilinogen 1.0 mg/dL (Negative) 09/27/24 21:31 Ur Leukocyte Esterase Negative (Negative) 09/27/24 21:31 Urine RBC 0-2 /hpf (0-2) 09/27/24 21:31 Urine WBC 0-5 /hpf (0-5) 09/27/24 21:31 Ur Squamous Epith Cells 0-5 /hpf (0-5) 09/27/24 21:31 Amorphous Sediment Not Reportable 09/27/24 21:31 Urine Bacteria None seen /hpf (NONE) 09/27/24 21:31 Hyaline Casts 0-4 /lpf H 09/27/24 21:31 No radiology studies performed this visit Discharge Plan Discharge Patient Disposition: Home Clinical Impression: Bilateral swelling of feet Condition: Stable Prescriptions: No Action multivitamin Tablet 1 tab PO DAILY metformin 500 mg tablet 500 mg PO DAILY paroxetine HCl 10 mg tablet 10 mg PO DAILY hydroxyzine HCl 10 mg tablet 10 mg PO TID PRN prednisone 20 mg tablet 20 mg PO DAILY 5 Days Qty: 5 0RF albuterol sulfate [Ventolin HFA] 90 mcg/actuation HFA aerosol inhaler 2 puff inhalation Q6H PRN (Reason: shortness of breath or wheezing) Qty: 8.5 0RF amoxicillin-pot clavulanate 875-125 mg tablet 1 tab PO BID 7 Days Qty: 14 0RF diclofenac sodium 50 mg tablet,delayed release (DR/EC) 50 mg PO BID PRN (Reason: pain) Qty: 14 0RF Discharge Orders: Discharge ED (Routine); Ordered 09/27/24 Ordered By: Juan Charlton Referrals: Miguel Fonseca FNP [Primary Care Provider, Family Practice] Patient Instructions: Pain Management Activity Restrictions/Additional Instructions: Foot swelling care Today?s evaluation did not show active swelling, infection (cellulitis), or blood clots. Blood and urine tests were normal. The swelling has been intermittent and nonspecific. Many people have swelling from standing or sitting for long periods, heat, or mild vein or lymph issues. The steps below can help prevent swelling and improve comfort. What to do at home - Elevate legs: When resting, raise the legs so the feet are above the level of the heart for 20?30 minutes, 2?3 times daily. This helps fluid move out of the feet. - Move often: Avoid long periods of sitting or standing in one place. Take short walks or do ankle pumps (flex and point the feet) for a few minutes every hour while awake to activate the calf muscle ?pump.? - Gentle activity: Regular walking and simple calf and foot exercises can reduce tired, heavy legs and help prevent swelling. Start gradually and increase as tolerated. - Consider compression: If swelling tends to come back during the day, [id number] knee-high graduated compression socks (often 15?20 mm Hg) may help. If these are comfortable and helpful, some people benefit from 20?30 mm Hg. Put them on in the morning, remove at night. Do not use compression if it causes pain, numbness, or skin changes; stop and seek advice if that occurs. - Skin care: Keep skin clean and moisturized to reduce dryness or cracking. Check feet and ankles daily for redness, warmth, or sores. - Heat and salt: Limit prolonged heat exposure (hot tubs, saunas) that can worsen swelling. Aim for a balanced diet and avoid very salty meals, which can increase water retention for some people. - Review medicines: Some medicines (for blood pressure, hormones, anti-inflammatories) can contribute to swelling. Bring a full medication list, including [id number] products and supplements, to the follow-up visit to review if any changes are needed. What to avoid - Do not start water pills (diuretics) on your own. These are not first-line for this type of swelling and can cause side effects if there is no fluid overload. - Avoid tight bands or straps around the calves or ankles that can restrict flow. Follow-up plan - Primary care follow-up: Schedule a follow-up visit within 1?2 weeks if swelling recurs or persists to review symptoms, medications, and next steps. - If swelling continues or worsens over several weeks, the clinician may consider: - An ultrasound of the leg veins to check vein function if signs point to venous insufficiency. - Additional labs or heart/lung evaluation if new symptoms suggest a systemic cause (for example, shortness of breath with activity). - Sleep-related symptoms review (snoring, daytime sleepiness) if there are signs of sleep apnea, which can contribute to leg swelling. - Bring photos: If swelling is intermittent, taking photos at the time of swelling can help at the follow-up visit. When to seek urgent care - New or worsening shortness of breath, chest pain, fainting, or sudden one-sided leg swelling. - Signs of infection in the legs/feet: spreading redness, warmth, fever, or pus. - Sudden severe pain, cold or blue toes, or loss of sensation. - For anyone with diabetes or known nerve problems in the feet: new, unexplained swelling with warmth and redness of the foot?especially if the foot is not very painful?should be checked promptly. Why these steps help - Elevation, movement, and compression reduce the pressure in leg veins and help move fluid back into circulation, which can decrease swelling and leg fatigue. - Avoiding unnecessary diuretics prevents dehydration and does not treat vein-related swelling when there is no fluid overload. Questions - For questions or if swelling returns, contact the clinic. If urgent symptoms occur, use the return precautions above. 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
[2024-09-27 21:02] LABS: Hematocrit 42.4 % (37-53); Hemoglobin 13.90 g/dL (11.27-16.99); Mean Corpuscular HGB Conc 32.8 g/dL (30-55); Mean Corpuscular Hemoglobin 28.3 pg (27-33); Mean Corpuscular Volume 86.2 fl (82-101); Nucleated Red Blood Cells % 0 %; Platelet Count 383 10^3/cmm (157-399); Red Blood Count 4.92 10^6/uL (3.85-5.65); White Blood Count 11.77 10^3/uL (3.29-11.43)
[2024-09-27 21:23] LABS: Alanine Aminotransferase 14 U/L (0-41); Albumin Level 4.2 g/dL (3.5-5.2); Alkaline Phosphatase 66 U/L (40-130); Anion Gap 15.2 (5-19); Aspartate Amino Transferase 25 U/L (0-40); Blood Urea Nitrogen 10 mg/dL (6-20); Calcium 8.7 mg/dL (8.5-10.5); Carbon Dioxide 27 mmol/L (22-29); Chloride 99 mmol/L (98-107); Creatinine Clr Calc Pharmacy 142.6367; Globulin 3.4 g/dL (1.3-4.6); Glucose 100 mg/dL (65-115); Osmolality Calculated 283 mOsm/kg (285-295); Potassium 4.2 mmol/L (3.5-5.1); Sodium 137 mmol/L (136-145); Total Protein 7.6 g/dL (6.6-8.7)
[2024-09-27 21:43] LABS: Glucose Urine UA Negative (Normal); Nitrate Urine Negative (Negative); Specific Gravity, Urine 1.023 (1.005-1.030)
[2024-09-27 21:48] LABS: Add Urine Microscopic? YES
== END 2024-09-27 22:08 | disposition home or self-care (01) ==
PROVIDERS: Emergency Provider Physician Assistant; PCP Registered Nurse
DX: R60.0 Localized edema (principal); Z79.84 Long term (current) use of oral hypoglycemic drugs; Z72.0 Tobacco use
CPT/HCPCS: 36415; 80053; 81001; 85025; 99283